=== PATIENT | female | born 1960 | race Caucasian/White ===

== ENCOUNTER 2019-04-17 16:02 | Emergency (ER) | payer BC ==
--- NOTE | 2019-04-17 16:47 | ED ---
Influenza-Like Illness - HPI Summary HPI Summary: 58 year old M presenting to [facility] alone complains of sore throat 03/30/2019 followed by laryngitis on 04/13/2019, and a fever and dry cough since 2 days ago. Patient denies vomiting and diarrhea. Patient reports no travel outside the country or any known exposure to someone with COVID-19. She hasn't done a test from her PCP. She received this year's flu shot. PMHx of vertigo. SHx of c- section. NKDA noted. The patient rates the pain 0/10 in severity. Symptoms aggravated by nothing. Symptoms alleviated by nothing. Medications reviewed. Allergies noted. Home Medications Medication Instructions Recorded Confirmed Type Benzonatate CAP* [Tessalon 100 MG 100 mg PO TID PRN #30 cap 04/17/19 Rx CAP*] dilTIAZem HCl [Diltiazem 12Hr ER] 120 mg PO BID 04/17/19 04/17/19 History - History of Current Complaint Chief Complaint: EDFever Time Seen by Provider: 04/17/19 16:06 Hx Obtained From: Patient Onset/Duration: Lasting Days, Still Present - Allergy/Home Medications Allergies/Adverse Reactions: Allergies Allergy/AdvReac Type Severity Reaction Status Date / Time No Known Allergies Allergy Verified 04/17/19 16:46 Home Medications: Home Medications Benzonatate CAP* [Tessalon 100 MG CAP*] 100 mg PO TID PRN #30 cap 04/17/19 [Rx] dilTIAZem HCl [Diltiazem 12Hr ER] 120 mg PO BID 04/17/19 [History Confirmed 12/26] PMH/Surg Hx/FS Hx/Imm Hx Sensory History: Denies: Hx Legally Blind Neurological History: Reports: Other Neuro Impairments/Disorders - vertigo - Surgical History Surgical History: Yes Surgery Procedure, Year, and Place: Infectious Disease History: No Infectious Disease History: Denies: Traveled Outside the [place] in Last 30 Days - Family History Known Family History: Positive: Hypertension - Social History Alcohol Use: None Smoking Status (MU): Never Smoked Tobacco Do You Chew or Dip Tobacco: No Review of Systems Positive: Fever Positive: Sore Throat, Other - laryngitis Positive: Cough - dry Negative: Vomiting, Diarrhea All Other Systems Reviewed And Are Negative: Yes Physical Exam - Summary Physical Exam Summary: Constitutional: Well-developed, Well-nourished, Alert. (-) Distressed Skin: Warm, Dry HENT: Coarse voice. Eyes: Conjunctiva normal Neck: Musculoskeletal ROM normal neck. (-) JVD, (-) Stridor, (-) Tracheal deviation Cardio: Rhythm regular, rate normal, Heart sounds normal; Intact distal pulses; Radial pulses are 2+ and symmetric. (-) Murmur Pulmonary/Chest wall: Effort normal. (-) Respiratory distress, (-) Wheezes, (-) Rales Abd: Soft, (-) tenderness, (-) Distension, (-) Guarding, (-) Rebound Musculoskeletal: (-) Edema Lymph: (-) Cervical adenopathy Neuro: Alert, Oriented x3 Psych: Mood and affect Normal Triage Information Reviewed: Yes Vital Signs On Initial Exam: Initial Vitals Temp Pulse Resp BP Pulse Ox 99.0 F 95 16 173/103 99 04/17/19 16:25 04/17/19 16:25 04/17/19 16:25 04/17/19 16:25 04/17/19 16:25 Vital Signs Reviewed: Yes Procedures - Sedation Patient Received Moderate/Deep Sedation with Procedure: No Diagnostics - Vital Signs Vital Signs Temp Pulse Resp BP Pulse Ox 04/17/19 16:25 99.0 F 95 16 173/103 99 - Laboratory Lab Statement: Any lab studies that have been ordered have been reviewed, and results considered in the medical decision making process. - Radiology CXR Radiology Interpretation Completed By: Radiologist Summary of Radiographic Findings: IMPRESSION: No radiographic evidence for acute cardiopulmonary abnormality on this. portable chest x-ray. has reviewed this report. Flu Symptom Course/Dx - Course Course Of Treatment: Patient was sent in by the primary care doctor for possible Covid19 evaluation. Patient has no known Covid 19 contacts or international travel. Patient's had a month of symptoms off and on with laryngitis, fever, dry cough. Patient is overall well-appearing on exam outside of obvious laryngitis. Patient had chest x-ray which was normal. Patient admits to rapid influenza and strep test. However, given patient's lack of travel history and sick contacts, patient does not meet requirements per the CDC to be tested for Covid 19. - Diagnoses Provider Diagnoses: Cough, Laryngitis Discharge ED - Sign-Out/Discharge Documenting (check all that apply): Patient Departure - discharge - Discharge Plan Condition: Stable Disposition: HOME Prescriptions: Benzonatate CAP* [Tessalon 100 MG CAP*] 100 mg PO TID PRN #30 cap PRN Reason: Cough Patient Education Materials: Laryngitis (ED) Referrals: Sonia Garcias MD [Primary Care Provider] - 3 Days Additional Instructions: Continue taking your medicines as prescribed. Continue with the hot tea and honey. Use Tylenol and Motrin for pain. Call your PCP for a follow up in the next 3 days. Return to the emergency department if you have worse trouble breathing or any other concerning symptoms. - Billing Disposition and Condition Condition: STABLE Disposition: Home - Attestation Statements Document Initiated by Caitlinibe: Yes Documenting Scribe: Alo Brown Provider For Whom Cierra is Documenting (Include Credential): Dr.Keith Alix Del Valle MD Scribe Attestation: Alo Grant scribed for Dr.Keith Alix Del Valle MD on 04/17/19 at 1826. Scribe Documentation Reviewed: Yes Provider Attestation: The documentation as recorded by the Alo arellano accurately reflects the service I personally performed and the decisions made by me, Dr.Keith Alix Del Valle MD Status of Scribe Document: Viewed
[2019-04-17 17:11] LABS: Rapid Strep Molecular Negative (Negative)
[2019-04-17 17:18] LABS: Influenza A Molecular Negative (Negative); Influenza B Molecular Negative (Negative)
[2019-04-17] MEDS ORDERED: Benzonatate CAP* 100 MG PO ONE (17:33)
[2019-04-17 17:57] VITALS: BP 138/89
== END 2019-04-17 17:56 | disposition home or self-care (01) ==
LOC: ED 16:02
DX: J04.0 Acute laryngitis (principal); R50.9 Fever, unspecified; R05 Cough
CPT/HCPCS: 71045; 87651; 99283; A9270-GY